=== PATIENT | male | born 2005 | race Caucasian/White ===

== ENCOUNTER → 2024-11-29 08:45 | Outpatient (BNV) | payer OTHER, SELFPAY | PROVIDERS: Visit Provider Psychiatry & Neurology Psychiatry | DX: F34.89 Other specified persistent mood disorders (principal); F90.2 Attention-deficit hyperactivity disorder, combined type; F33.9 Major depressive disorder, recurrent, unspecified; F41.1 Generalized anxiety disorder | CPT/HCPCS: 99214 ==

== ENCOUNTER 2024-12-11 09:30 | Outpatient (RCR) | payer OTHER, SELFPAY ==
[2024-11-27 11:56] VITALS: BP 114/80; PULSE 80; TEMP 36.6
[2024-11-27 12:59] VITALS: BMI 38.3
--- NOTE | 2024-11-27 13:58 | PC.ADMIT ---
Patient is a 19 year old single male who referred to [facility] after getting a crisis assessment two weeks ago secondary to c/o depression and anxiety. Patient currently is on academic probation from college and is struggling with this causing him increased stress and anxiety. Patient reports he does well in college when he is not depressed however when he is struggling with depression sxs his grades suffer. Patient stated when he found out he was acedemically suspended from school he was in [place] and had a severe panic attack where he reports he lost conciousness. He was seen by live in companion at the time with no further medical f/u. Patient is alert and oriented x4. He is calm and cooperative. He presented with depressed mood and anxious affect. He denied SI, no HI. He was given a copy of his safety plan if needed. He feels his mood changes rapidly stating, Go from happiness, to excitement, to depression, irritation and anger and things like that. The depression numbs everything and makes everything awful . Patient's medications updated with patient's pharmacy and per patient. He reports taking medications as prescribed. Patient stated he uses marijuana once every 2 to three days and feels he is using this too much thus he is planning on cutting down his use. Educated patient about [facility] substance groups however he does not want to engage in [facility]'s substance use groups at this time as he feels he can do this on his own. Patient hopes to go back to school in the fall.
--- NOTE | 2024-11-28 15:48 | HO.PHP ---
Client's case has been opened and reviewed in team.
--- NOTE | 2024-11-28 22:16 | HO.PS.ADMBH ---
HPI Date of Service: 11/28/24 Chief Complaint: anxiety,depression Sources of Information: patient interviewed, chart reviewed and crisis/core team assessment reviewed Additional Sources of Information: Initial Assessment reviewed with patient, including HPI, PPH, SH, Substance use hx,Trauma hx,? please refer to note for full details. HPI Narrative: This is the 1st PHP admission for this 19-year-old male college student at [employer], who was referred from [facility]. He reports struggling with depression more less each semester since starting college. Some semesters were worse than others and had really negatively impacted his academic performance. Patient currently on academic suspension for the next 2 semesters, is unable to return to school until Fall 2025, at which time he will be entering his senior year. He was last at school in October, and notes that he is no longer able to access his therapist or psychiatric provider because they are out of state and will be needing referrals in the area. Currently mood is ?not that great. Despondent, anhedonic it fluctuates in severity. Last week it felt leaden where I am slow down, tired, just sleeping too much . Mood reactivity, irritability, poor frustration tolerance. Feels restless at times, especially if overstimulated or understimulated. NO grandiosity. Denies AH, VH or paranoid or aberrant thoughts. ?Occasional alcohol and marijuana use, socially. Denies any other current substance use. Depression severity: 7-8/10, Cognitive anxiety 9/10. Somatic anxiety 7/10. Irritability 6-7/10 at baseline, increased when annoyed by environmental factors. Restlessness 8/10. Past Psychiatric History: No prior IPLOC, PHP, respite, detox/rehab admissions SA: denies SIB: denies Aggression or antisocial behaviors: denies Denies legal history Pertinent developmental hx: denies any delays, LD, ASD Previous diagnoses: ADHD dx at age 13-14 No current OP MH treaters Previously seeing therapist in [place], can not see therapist out of state over summer PCP: Dr. Reese Garrett at [facility] Previous trials: possibly a remote stimulant trial as an adolescent but uncertain CURRENT MEDICATIONS: venlafaxine 225 mg qd Abilify 3 mg qd atemoxetine 100 mg qd hydroxyzine 25 mg qd prn anxiety PMFSH Medical History (Updated 12/01/24 @ 20:26 by Dafne Olguin MD) No known health problems Narrative: Environmental allergies h/o syncopal/vasal vagal w LOC 10/2023 (unsure if hit head when fainted) Hospitalized at age 11 from bronchiolitis Denies any chronic health conditions Surgeries: wisdom teeth removal Seizures: denies Concussions/TBI: denies Ht:?5'11 Wt: 270 lbs ALL: NKDA Family History: Grandparents with alcoholism on both sides ?Suicides in family Social History: Unemployed Currently attending at [employer] Graduated HS 2021 Substance History: Alcohol: infrequent, 2-3 times/week or less, denies misuse/abuse/binge drinking/blackouts Cannabis: 1-2 times a week, in past periods of using daily Nicotine: in past socially, no dependence Denies other TORI Trauma History: denies Diagnostics Vital Signs (24Hr): BMI result Body Mass Index 38.3 Meds/Allergies Allergies Allergies Allergy/AdvReac Type Severity Reaction Status Date / Time No Known Allergies Allergy Verified 11/27/24 12:58 Mental Status Exam Mental Status Exam Narrative: Alert, oriented, in no acute distress. Cooperative but becoming more difficult to engage over encounter due to poor attention. Some psychomotor agitation, restlessness, distraction. Eye contact maintained. Mood depressed, affect constricted, irritable edge without notable lability. Speech normal. Thought process linear, coherent. Thought content related to stressors, transient helplessness, no hopelessness noted, denies SI, intention, urge or plan. Denies any aggressive ideation or HI. No paranoia or delusional content elicited. No evidence of psychosis. Insight and judgment - fair but adequate Assessment & Plan Assessment & Plan (1) Other specified persistent mood disorders: Status: Acute Code(s): F34.89 - Other specified persistent mood disorders Assessment and Plan: mood dysregulation marked by reactivity, irritability, impulsiveness, low frustration tolerance (presumed to be 2/t ADHD) (2) MDD (major depressive disorder), recurrent episode: Status: Acute Code(s): F33.9 - Major depressive disorder, recurrent, unspecified (3) Attention-deficit hyperactivity disorder, unspecified type: Status: Acute Code(s): F90.9 - Attention-deficit hyperactivity disorder, unspecified type (4) MATIAS (generalized anxiety disorder): Status: Acute Code(s): F41.1 - Generalized anxiety disorder (5) Attention deficit hyperactivity disorder (ADHD), combined type: Status: Acute Code(s): F90.2 - Attention-deficit hyperactivity disorder, combined type Plan Admit to [facility] VS reviewed: afebrile, BP 114/80; 80 bpm increase Abilify to 5 mg qam start Buspar 5 mg BID-TID continue venlafaxine 225 mg qam continue atemoxetine 100 mg qam for now (will plan to transition over to combination of stimulant/guanfacine) continue hydroxyzine 25 mg qd PRN q 6 hrs Routine lab work as indicated EKG, routine for baseline QTc for medication considerations as indicated UDS as indicated MassPat reviewed Continue to monitor as per protocol Patient educated on: diagnosis, medication risk/benefits and substance abuse Informed Consent: understands Reason for continued partial hosp. stay Substantial Risk for: inability to function and med/psych decompensation Certification I certify that partial hospital treatment is medically necessary due to the symptoms and problems resulting from the patient's mental illness and the failure to treat the patient at the partial hospital level of care would likely result in the patient requiring inpatient psychiatric care which could not be prevented at a less intensive level of care. Time Spent With Patient Time: Total time managing care of this patient today __90__ minutes.
--- NOTE | 2024-11-29 20:15 | P.PNPSP_ITS ---
Subjective Subjective Date of Service: 11/29/24 Reason For Visit: anxiety,depression Interim History: Patient seen for follow-up. He is bright and eager to meet. Initially engaged but increasingly more distracted over course of encounter. He increased dose of Abilify to 5 mg this morning and started on BuSpar 5 mg, denies any adverse effects. Says he was feeling pretty good this morning which is usual for him it usually around 10 or 11:00 there the irritability starts picking up. We will plan to start guanfacine in around that time to see if this can help will also start to decrease Strattera, plan to reduce to 75 mg over the weekend and continue tapering off next week. Did not feel the BuSpar interfered with sleep last night. For now will continue venlafaxine at 225 mg. Denies any hopelessness or SI, denies any HI or AVH. Medication Compliance: Yes Side effects from medications: No Attending Groups: Yes Review of Systems Acute medical concerns: No Mental Status Exam Mental Status Exam Narrative: Alert, oriented, in no acute distress. Cooperative but becoming more difficult to engage over encounter due to poor attention. Some psychomotor agitation, restlessness, distraction. Eye contact maintained. Mood depressed, affect constricted, irritable edge without notable lability. Speech normal. Thought process linear, coherent. Thought content related to stressors, transient helplessness, no hopelessness noted, denies SI, intention, urge or plan. Denies any aggressive ideation or HI. No paranoia or delusional content elicited. No evidence of psychosis. Insight and judgment - fair but adequate Diagnostics Vital Signs (24Hr): BMI result Body Mass Index 38.3 Assessment & Plan Assessment & Plan (1) Other specified persistent mood disorders: Status: Acute Code(s): F34.89 - Other specified persistent mood disorders Assessment and Plan: mood dysregulation marked by reactivity, irritability, impulsiveness, low frustration tolerance (presumed to be 2/t ADHD) (2) Attention deficit hyperactivity disorder (ADHD), combined type: Status: Acute Code(s): F90.2 - Attention-deficit hyperactivity disorder, combined type (3) MDD (major depressive disorder), recurrent episode: Status: Acute Code(s): F33.9 - Major depressive disorder, recurrent, unspecified (4) MATIAS (generalized anxiety disorder): Status: Acute Code(s): F41.1 - Generalized anxiety disorder Plan Continue PHP continue Abilify 5 mg qam start Buspar 5 mg BID-TID, (will continue to titrate as tolerated) continue venlafaxine 225 mg qam decrease atemoxetine to 75 mg qam (continue to taper off and transition over to combination of Vyvanse/guanfacine) start guanfacine ER 1 mg qd late am/midday hold off starting Vyvanse for now continue hydroxyzine 25 mg qd PRN q 6 hrs Discontinue: atemoxetine 100 mg, Routine lab work as indicated EKG, routine for baseline QTc for medication considerations as indicated UDS as indicated VS reviewed: afebrile, BP 114/80; 80 bpm Continue to monitor as per protocol Patient educated on: diagnosis and medication risk/benefits Informed Consent: understands Reason for contiued partial hosp. stay Substantial Risk for: inability to function, rapid decompensation and med/psych decompensation Certification I certify that partial hospital treatment is medically necessary due to the symptoms and problems resulting from the patient's mental illness and the failure to treat the patient at the partial hospital level of care would likely result in the patient requiring inpatient psychiatric care which could not be prevented at a less intensive level of care. Total time managing care of this patient today __30__ minutes. Discharge Plan Discharge Attending provider: Dafne Olguin Medications: New aripiprazole 5 mg tablet 5 mg PO DAILY Qty: 30 0RF buspirone 5 mg tablet 5 mg PO TID Qty: 30 0RF lisdexamfetamine 10 mg capsule 10 mg PO QAM Qty: 30 0RF Rx Instructions: Partial Fill upon patient request. guanfacine 1 mg tablet extended release 24 hr 1 mg PO DAILY Qty: 30 0RF atomoxetine 25 mg capsule 50 mg PO QAM 30 Days Qty: 60 0RF Continued hydroxyzine pamoate 25 mg capsule 25 mg PO Q6H PRN (Reason: anxiety) atomoxetine 100 mg capsule 100 mg PO QAM venlafaxine 225 mg tablet extended release 24hr 225 mg PO DAILY Discontinued aripiprazole 2 mg tablet 3 mg PO DAILY Rx Instructions: TAKE 1 AND 1/2 TABLETS BY MOUTH DAILY Stand Alone Forms: Patient Portal Discharge page Print Language: Lithuanian
--- NOTE | 2024-12-05 12:50 | HO.PHPPROGNO ---
Subjective Subjective Date of Service: 12/05/24 Reason For Visit: anxiety,depression Interim History: [place] okay this weekend... mood is okayish Rates irtitability at a 6/10 in severity, depression at a 5 or 6/10 in severity, anxiety at a 6/10. Denies any SI, HI, AVH. Still struggling with distracatiliby, attention. Hyperactive. Sleep is intact, gets 8 or 9 hours of sleep. Medication Compliance: Yes Side effects from medications: No Attending Groups: Yes Review of Systems Acute medical concerns: No Mental Status Exam Mental Status Exam Narrative: Alert, oriented, in no acute distress. Cooperative but becoming more difficult to engage over encounter due to poor attention. Some psychomotor agitation, restlessness, distraction. Eye contact maintained. Mood depressed, affect constricted, irritable edge without notable lability. Speech normal. Thought process linear, coherent. Thought content related to stressors, transient helplessness, no hopelessness noted, denies SI, intention, urge or plan. Denies any aggressive ideation or HI. No paranoia or delusional content elicited. No evidence of psychosis. Insight and judgment - fair but adequate Diagnostics Vital Signs (24Hr): BMI result Body Mass Index 38.3 Assessment & Plan Assessment & Plan (1) Other specified persistent mood disorders: Status: Acute Code(s): F34.89 - Other specified persistent mood disorders Assessment and Plan: mood dysregulation marked by reactivity, irritability, impulsiveness, low frustration tolerance (presumed to be 2/t ADHD) (2) Attention deficit hyperactivity disorder (ADHD), combined type: Status: Acute Code(s): F90.2 - Attention-deficit hyperactivity disorder, combined type (3) MDD (major depressive disorder), recurrent episode: Status: Acute Code(s): F33.9 - Major depressive disorder, recurrent, unspecified (4) MATIAS (generalized anxiety disorder): Status: Acute Code(s): F41.1 - Generalized anxiety disorder Plan Continue PHP continue Abilify 5 mg qam continue Buspar 5 mg TID continue venlafaxine 225 mg qam start Vyvanse 10-20 mg qd decrease atemoxetine to 50 mg qam for now (will plan to transition over to combination of stimulant/guanfacine) continue hydroxyzine 25 mg qd PRN q 6 hrs Routine lab work as indicated EKG, routine for baseline QTc for medication considerations as indicated UDS as indicated VS reviewed: afebrile, BP 114/80; 80 bpm Continue to monitor Patient educated on: diagnosis and medication risk/benefits Informed Consent: understands Reason for contiued partial hosp. stay Substantial Risk for: inability to function and med/psych decompensation Certification I certify that partial hospital treatment is medically necessary due to the symptoms and problems resulting from the patient's mental illness and the failure to treat the patient at the partial hospital level of care would likely result in the patient requiring inpatient psychiatric care which could not be prevented at a less intensive level of care. Total time managing care of this patient today _30___ minutes. Discharge Plan Discharge Attending provider: Dafne Olguin Additional Instructions: 12/16/2024? 10:00 AM - 11:00 AM [facility] Adult Comprehensive Assessment -?In Person Prog: Outpatient Site:[address] Staff: Emma Guadarrama 511:00 AM - 12:00 PM Psychiatric E/M New -?Telehealth v2 Prog: Psychiatric Services Site: [facility] Staff: Evelyn Whittaker Medications: New guanfacine 1 mg tablet extended release 24 hr 1 mg PO DAILY Qty: 30 0RF buspirone 7.5 mg tablet 7.5 mg PO TID Qty: 30 0RF guanfacine 1 mg tablet extended release 24 hr 1 mg PO BID Qty: 60 0RF lisdexamfetamine 30 mg capsule 30 mg PO QAM Qty: 30 0RF Rx Instructions: Partial Fill upon patient request. buspirone 10 mg tablet 10 mg PO TID Qty: 90 0RF Continued hydroxyzine pamoate 25 mg capsule 25 mg PO Q6H PRN (Reason: anxiety) Qty: 60 0RF venlafaxine 225 mg tablet extended release 24hr 225 mg PO DAILY Qty: 30 0RF aripiprazole 10 mg tablet 10 mg PO DAILY Qty: 30 0RF Discontinued aripiprazole 2 mg tablet 3 mg PO DAILY Rx Instructions: TAKE 1 AND 1/2 TABLETS BY MOUTH DAILY atomoxetine 100 mg capsule 100 mg PO QAM Stand Alone Forms: Patient Portal Discharge page Patient Education: ADHD in Adults (DC), Depression (DC) Print Language: Tanzanian
--- NOTE | 2024-12-09 15:12 | HO.PHP ---
Pt's aftercare apts are as follows: 12/16/2024? 10:00 AM - 11:00 AM [facility] Adult Comprehensive Assessment -?In Person [address]g: [email or web address] Staff: Emma Guadarrama 511:00 AM - 12:00 PM Psychiatric E/M New -?Telehealth v2 Prog: Psychiatric Services Site: [facility] Staff: Evelyn Whittaker
--- NOTE | 2024-12-22 15:50 | P.EN_ITS ---
Event Note Date of Service: 12/22/24 Event Note: Spoke with patient who left message requesting refills. He is about to run out of Buspar. He has tapered off the atemoxetine which has been fine. Still doing well with Vyvanse for focus. Anxiety persists even with increase of Buspar to 7.5 mg TID, Denies any adverse effects. Has been utilizing hydroxyzine PRN usually twice a day. No issues with tolerance. Otherwise doing well. Mood stable, no hopelessness or SI. Will increase Buspar to 10 mg TID. Has new provid er appointment on 01/13 at 11am on [facility].WIll contiune to cover refills until then. Time Spent With Patient Time: Total time managing care of this patient today _15_ minutes.
== END 2024-12-11 23:59 | disposition home or self-care (01) ==
LOC: HO.PHPA 09:30
PROVIDERS: Visit Provider Psychiatry & Neurology Psychiatry
DX: F34.89 Other specified persistent mood disorders (principal); F33.9 Major depressive disorder, recurrent, unspecified; F90.2 Attention-deficit hyperactivity disorder, combined type; F41.1 Generalized anxiety disorder; Z79.899 Other long term (current) drug therapy
CPT/HCPCS: 90791; 90853